=== PATIENT | female | born 1945 | race Two or more races ===

== ENCOUNTER 2024-09-15 19:49 | Inpatient (IN) | payer MEDICARE, OTHER ==
[~2024-09-15] VITALS: Ht 165.1 cm; Wt 65.8 kg
[2024-09-15] MEDS ORDERED: HALOPERIDOL LACTATE INJ 5 MG/ML VIAL ONE (20:50)
[2024-09-15] MEDS: HALOPERIDOL LACTATE INJ 5 MG/ML VIAL IM ONE (20:56)
[2024-09-15 21:08] LABS: BASOPHILS # (AUTO) 0.1 K/uL (0.0-0.2); BASOPHILS % (AUTO) 0.5 % (0.0-2.0); EOSINOPHILS # (AUTO) 0.1 K/uL (0.0-0.7); EOSINOPHILS % (AUTO) 0.8 % (0.0-6.0); HEMATOCRIT 41 % (33-45); HEMOGLOBIN 13.2 g/dL (11.5-14.8); LYMPHOCYTES % (AUTO) 18.4 % (20.0-44.0); MEAN CORPUSCULAR HEMOGLOBIN 28 PG (26.0-33.0); MEAN CORPUSCULAR HGB CONC 33 g/dl (31.0-36.0); MEAN CORPUSCULAR VOLUME 86 fL (82-100); MONOCYTES # (AUTO) 0.9 K/uL (0.1-1.30); NEUTROPHILS # (AUTO) 7.7 K/uL (1.8-8.9); NEUTROPHILS % (AUTO) 72.3 % (43.0-81.0); PLATELET COUNT (AUTO) 291 K/uL (150-450); RED CELL DISTRIBUTION WIDTH 15.2 % (11.5-15.0); WHITE BLOOD COUNT (AUTO) 10.7 K/uL (4.3-11.0)
[2024-09-15 21:15] LABS: CALCIUM, SERUM 8.5 mg/dL (8.5-10.1); CARBON DIOXIDE 30 mmol/L (21-32); CHLORIDE 105 mmol/L (98-107); CREATININE 1.1 mg/dL (0.6-1.3); GLUCOSE 135 mg/dL (74-106); POTASSIUM 4.2 mmol/L (3.5-5.1); SODIUM SERUM 139 mmol/L (136-145); UREA NITROGEN, BLOOD 21 mg/dL (7-18)
[2024-09-15 21:21] LABS: ACETAMINOPHEN <10 ug/ml (10-30); ALANINE AMINOTRANSFERASE 21 U/L (12-78); ALBUMIN 3.2 g/dL (3.4-5.0); ALCOHOL, BLOOD < 3 mg/dL (0-10); ALKALINE PHOSPHATASE 55 U/L (46-116); ASPARTATE AMINOTRANSFERASE 23 U/L (15-37); BILIRUBIN,DIRECT 0.1 mg/dL (0.0-0.2); BILIRUBIN,TOTAL 0.4 mg/dL (0.2-1.0); SALICYLATE 1.4 mg/dL (2.8-20.0); TOTAL PROTEIN, SERUM 7.3 g/dL (6.4-8.2)
[2024-09-15 22:39] LABS: AMPHETAMINE, URINE NEGATIVE (NEGATIVE); BARBITURATE, URINE NEGATIVE (NEGATIVE); BENZODIAZEPINE, URINE NEGATIVE (NEGATIVE); CANNABINOID, URINE NEGATIVE (NEGATIVE); COCCAINE, URINE NEGATIVE (NEGATIVE); OPIATE, URINE NEGATIVE (NEGATIVE); PHENCYCLIDINE SCREEN,URINE NEGATIVE (NEGATIVE)
[2024-09-15 22:57] LABS: APPEARANCE,URINE CLEAR (CLEAR); BILIRUBIN,URINE NEGATIVE (NEGATIVE); BLOOD, URINE NEGATIVE Ery/uL (NEGATIVE); COLOR,URINE YELLOW (YELLOW); KETONES,URINE NEGATIVE (NEGATIVE); LEUKOCYTE ESTERASE ,URINE TRACE (NEGATIVE); NITRITE, URINE NEGATIVE (NEGATIVE); PROTEIN,URINE NEGATIVE (NEGATIVE); UGLUCOSE NEGATIVE (NEGATIVE); UROBILINOGEN,URINE 0.2 EU/dL (0.2)
[2024-09-15 23:00] LABS: ADD URINE CULTURE NO; BACTERIA,URINE Few /HPF (None Seen); RBC,URINE 0-2 /HPF (0-2); SQUAMOUS EPITHELIAL CELL,UR Few /HPF (None Seen)
[2024-09-16] MEDS ORDERED: TEMAZEPAM 7.5 MG CAPSULE PO PRN ×2 (05:30)
[2024-09-16] MEDS ORDERED: MAGNESIUM HYDROXIDE 30 ML UDC PO PRN (05:30)
[2024-09-16] MEDS ORDERED: MAG HYDROX/AL HYDROX/SIMETH 30 ML UDC PO PRN (05:30)
[2024-09-16] MEDS ORDERED: LORAZEPAM 0.5 MG TABLET PO PRN ×2 (05:30)
[2024-09-16] MEDS ORDERED: METH500T6 PO (06:07)
[2024-09-16] MEDS ORDERED: DIVA125C5 PO (06:07)
[2024-09-16] MEDS ORDERED: ALBU2.5V13 NEB (06:07)
[2024-09-16] MEDS ORDERED: FURO20TA4 PO (06:07)
[2024-09-16] MEDS ORDERED: LISI-768 PO (06:07)
[2024-09-16] MEDS ORDERED: ATOR20TA PO (06:07)
[2024-09-16] MEDS ORDERED: METO25TA6 PO (06:07)
[2024-09-16] MEDS ORDERED: DEXT15DR23 EACHEYE (06:07)
[2024-09-16] MEDS ORDERED: HYDR-4076 PO (06:07)
[2024-09-16] MEDS ORDERED: SENN-261 PO (06:07)
[2024-09-16] MEDS ORDERED: MEMA10TA56 PO (06:07)
[2024-09-16] MEDS ORDERED: CLOP75TA15 PO (06:07)
[2024-09-16] MEDS ORDERED: IPRA0.2S49 IH (06:07)
[2024-09-16] MEDS ORDERED: DONE10TA44 PO (06:07)
[2024-09-16] MEDS: BLOOD SUGAR DIAGNOSTIC 1 EACH STRIP IN ONE (06:10)
[2024-09-16 08:00] VITALS: BP 117/70; TEMP 97.9; O2SAT 96
[2024-09-16] MEDS ORDERED: GUAI-1189 PO (08:03)
[2024-09-16] MEDS ORDERED: DOCU100C36 PO (08:03)
[2024-09-16] MEDS ORDERED: ACET325T53 PO (08:03)
[2024-09-16] MEDS ORDERED: MAGN400O6 PO (08:03)
[2024-09-16] MEDS ORDERED: IPRA3AMP23 NEB (08:03)
[2024-09-16] MEDS ORDERED: MELA3TAB41 PO (08:03)
[2024-09-16] MEDS ORDERED: NA P133E RC (08:03)
[2024-09-16] MEDS ORDERED: BISA10SU11 RC (08:03)
[2024-09-16 16:04] VITALS: BP 125/99; TEMP 97.8; O2SAT 97
[2024-09-16] MEDS ORDERED: NA PHOS,M-B/NA PHOS,DI-BA 1 EA ENEMA RC PRN (17:00)
[2024-09-16] MEDS ORDERED: hydrALAZINE HCL 25 MG TABLET PO PRN (17:00)
[2024-09-16] MEDS: LISINOPRIL (5MG) 5 MG TABLET PO SCH (17:56)
[2024-09-16] MEDS: MEMANTINE HCL 5 MG TABLET PO SCH (17:56)
[2024-09-16] MEDS: METHOCARBAMOL (500MG) 500 MG TABLET PO SCH (17:56)
[2024-09-16] MEDS: FUROSEMIDE 20 MG TABLET PO SCH (17:56)
[2024-09-16] MEDS: DOCUSATE SODIUM 100 MG CAPSULE PO SCH (17:56)
[2024-09-16] MEDS: CLOPIDOGREL BISULFATE 75 MG TABLET PO SCH (17:57)
[2024-09-16] MEDS: METOPROLOL TARTRATE 25 MG TABLET PO SCH (17:57)
[2024-09-16] MEDS: SENNOSIDES 8.6 MG TABLET PO PRN (17:57)
[2024-09-16] MEDS: ACETAMINOPHEN 325 MG TABLET PO PRN (18:12)
[2024-09-16] MEDS: ALBUTEROL FS 2.5 MG/3 ML VIAL.NEB IH SCH (19:30)
[2024-09-16] MEDS: IPRATROPIUM NEB FS 0.5 MG/2.5 ML AMPUL.NEB IH SCH (19:30)
[2024-09-16] MEDS: DIVALPROEX SODIUM 125 MG TABLET.DR PO SCH (20:21)
[2024-09-16] MEDS: OLANZAPINE 2.5 MG TABLET PO SCH (20:22)
[2024-09-16] MEDS: CEPHALEXIN MONOHYDRATE 250 MG CAPSULE PO SCH (20:22)
[2024-09-16 22:21] VITALS: BP 125/99; TEMP 97.8; O2SAT 97
[2024-09-16] MEDS: DONEPEZIL 5 MG TABLET PO SCH (22:22)
[2024-09-16] MEDS: ZOLPIDEM TARTRATE 5 MG TABLET PO PRN (22:22)
[2024-09-16] MEDS: ATORVASTATIN 10 MG TABLET PO SCH (22:22)
[2024-09-17 08:00] VITALS: BP 149/72; TEMP 98.6; O2SAT 98
[2024-09-17 08:05] LABS: CHOLESTEROL 187 mg/dL (<200); HDL CHOLESTEROL 54 mg/dL (40-60); LDL 126 mg/dL (0-99); TRIGLYCERIDES 92 mg/dL (30-150)
[2024-09-17 08:07] LABS: ALBUMIN 3.1 g/dL (3.4-5.0); BILIRUBIN,TOTAL 0.7 mg/dL (0.2-1.0); CALCIUM, SERUM 8.5 mg/dL (8.5-10.1); POTASSIUM 3.7 mmol/L (3.5-5.1); TOTAL PROTEIN, SERUM 7.2 g/dL (6.4-8.2)
[2024-09-17 16:00] VITALS: BP 103/54; TEMP 98.7; O2SAT 98
[2024-09-17 20:00] VITALS: BP 129/106; TEMP 98.5; O2SAT 98
[2024-09-17 20:18] VITALS: O2SAT 98
[2024-09-17 20:27] VITALS: O2SAT 99
[2024-09-18] VITALS (7 sets, daily range): BP systolic 94–112; BP diastolic 59–77; TEMP 97.6–98.5; O2SAT 95–99
[2024-09-18 15:07] LABS: BASOPHILS % (AUTO) 0.4 % (0.0-2.0); EOSINOPHILS # (AUTO) 0.1 K/uL (0.0-0.7); EOSINOPHILS % (AUTO) 1.4 % (0.0-6.0); HEMATOCRIT 42 % (33-45); HEMOGLOBIN 13.8 g/dL (11.5-14.8); LYMPHOCYTES # (AUTO) 2.2 K/uL (0.8-4.8); LYMPHOCYTES % (AUTO) 21.1 % (20.0-44.0); MEAN CORPUSCULAR HEMOGLOBIN 28 PG (26.0-33.0); MEAN CORPUSCULAR HGB CONC 33 g/dl (31.0-36.0); MEAN CORPUSCULAR VOLUME 87 fL (82-100); MONOCYTES % (AUTO) 9.3 % (2.0-12.0); NEUTROPHILS % (AUTO) 67.8 % (43.0-81.0); PLATELET COUNT (AUTO) 298 K/uL (150-450); RED BLOOD CELL COUNT(AUTO) 4.87 MIL/uL (4.0-5.2); RED CELL DISTRIBUTION WIDTH 15.3 % (11.5-15.0); WHITE BLOOD COUNT (AUTO) 10.3 K/uL (4.3-11.0)
[2024-09-18 15:18] LABS: CALCIUM, SERUM 8.5 mg/dL (8.5-10.1); CREATININE 1.1 mg/dL (0.6-1.3); POTASSIUM 4.5 mmol/L (3.5-5.1)
[2024-09-19] VITALS (8 sets, daily range): BP systolic 101–146; BP diastolic 64–96; TEMP 97.7–97.9; O2SAT 94–99
[2024-09-19] MEDS: POLYVINYL ALCOHOL 15 ML BOTTLE EACHEYE PRN (13:21)
[2024-09-19] MEDS: OLANZAPINE 5 MG TABLET PO SCH (21:26)
[2024-09-20 07:58] VITALS: O2SAT 96
[2024-09-20 08:00] VITALS: BP 124/67; TEMP 97.9; O2SAT 94
[2024-09-20 08:13] VITALS: O2SAT 99
[2024-09-20] MEDS: OLANZAPINE 2.5 MG TABLET PO SCH (08:32)
[2024-09-20 16:00] VITALS: BP 112/67; TEMP 97.8; O2SAT 97
[2024-09-20 20:21] VITALS: BP 112/71; TEMP 98.6; O2SAT 96
[2024-09-21] VITALS (7 sets, daily range): BP systolic 117–128; BP diastolic 64–72; TEMP 97.7–97.9; O2SAT 95–99
[2024-09-21] MEDS: DIVALPROEX SODIUM 125 MG TABLET.DR PO SCH (14:01)
[2024-09-22 08:00] VITALS: BP 124/72; TEMP 98.1; O2SAT 96
[2024-09-22 08:23] VITALS: O2SAT 96
[2024-09-22 08:38] VITALS: O2SAT 98
[2024-09-22 16:00] VITALS: BP 133/79; TEMP 97.7; O2SAT 97
[2024-09-22 22:28] VITALS: BP 102/71; TEMP 98.2; O2SAT 97
[2024-09-23 08:00] VITALS: BP 123/57; TEMP 98.6; O2SAT 97
[2024-09-23] MEDS: OLANZAPINE 2.5 MG TABLET PO ONE (14:33)
[2024-09-23 16:00] VITALS: BP 100/64; TEMP 97.8; O2SAT 98
[2024-09-24 08:00] VITALS: BP 104/55; TEMP 97.8; O2SAT 97
[2024-09-24] MEDS: OLANZAPINE 2.5 MG TABLET PO SCH (09:03)
[2024-09-24 16:12] VITALS: BP 98/57; TEMP 97.3; O2SAT 96
[2024-09-24 20:00] VITALS: BP 89/63; TEMP 98.4; O2SAT 98
[2024-09-25 08:00] VITALS: BP 115/60; TEMP 98; O2SAT 94
[2024-09-25 16:00] VITALS: BP 112/89; TEMP 97.2; O2SAT 95
[2024-09-25 21:16] VITALS: BP 102/52; TEMP 97.9; O2SAT 97
[2024-09-26] VITALS (7 sets, daily range): BP systolic 96–145; BP diastolic 58–71; TEMP 97.5–98.1; O2SAT 95–99
[2024-09-26] MEDS ORDERED: DIVALPROEX SODIUM 125 MG TABLET.DR PO SCH (21:00)
[2024-09-26] MEDS: DIVALPROEX SODIUM 125 MG CAP.SPRINK PO SCH (21:41)
[2024-09-27 08:00] VITALS: BP 107/65; TEMP 97.9; O2SAT 96
[2024-09-27 13:42] VITALS: O2SAT 97
[2024-09-27 13:52] VITALS: O2SAT 100
[2024-09-27 16:00] VITALS: BP 150/90; TEMP 97.9; O2SAT 99
[2024-09-27 20:56] VITALS: BP 103/68; TEMP 97.9; O2SAT 98
[2024-09-28 08:11] VITALS: BP 110/65; TEMP 97.8; O2SAT 97
[2024-09-28 16:21] VITALS: BP 97/71; TEMP 97.8; O2SAT 97
[2024-09-28 20:32] VITALS: BP 108/55; TEMP 97.8; O2SAT 98
[2024-09-29 08:00] VITALS: BP 105/59; TEMP 98.1; O2SAT 96
[2024-09-29 16:00] VITALS: BP 115/65; TEMP 97.9; O2SAT 97
[2024-09-29] MEDS: GABAPENTIN 100 MG CAPSULE PO SCH (17:30)
[2024-09-29 21:38] VITALS: BP 117/75; TEMP 98.2; O2SAT 96
[2024-09-30 07:50] VITALS: O2SAT 96
[2024-09-30 08:00] VITALS: BP 102/52; TEMP 97.7; O2SAT 98
[2024-09-30 08:02] VITALS: O2SAT 96
[2024-09-30 16:15] VITALS: BP 103/55; TEMP 98.1; O2SAT 93
[2024-09-30 16:23] VITALS: BP 102/79
== END 2024-09-30 19:33 | DRG 885 ==
LOC: ER 19:51 → GPS 09-16 04:00
PROVIDERS: ADMIT Psychiatry & Neurology Psychiatry; ATTEND Nurse Practitioner Acute Care
DX: F29 Unspecified psychosis not due to a substance or known physiological condition (principal); G93.41 Metabolic encephalopathy; E44.1 Mild protein-calorie malnutrition; N39.0 Urinary tract infection, site not specified; F03.92 Unspecified dementia, unspecified severity, with psychotic disturbance; F03.918 Unspecified dementia, unspecified severity, with other behavioral disturbance; I10 Essential (primary) hypertension; I48.91 Unspecified atrial fibrillation; E78.5 Hyperlipidemia, unspecified; E88.09 Other disorders of plasma-protein metabolism, not elsewhere classified; Z20.822 Contact with and (suspected) exposure to COVID-19; Z73.6 Limitation of activities due to disability; F39 Unspecified mood [affective] disorder; Z68.24 Body mass index [BMI] 24.0-24.9, adult
CPT/HCPCS: 36415; 80048-TC; 80053-TC; 80061-TC; 80076-TC; 80164-TC; 81001; 82565-TC; 82962-TC; 85025-TC; 87081-TC; 94760-TC; 94799-TC; 97110-TC; 97530-TC; G0480; J1630